=== PATIENT | female | born 2000 | race Caucasian/White ===

== ENCOUNTER 2024-04-04 12:27 | Emergency (ER) | payer BC, SELFPAY ==
[2024-04-04 12:35] VITALS: BP 123/85; PULSE 85; TEMP 37.2; O2SAT 97; BMI 26.6
--- NOTE | 2024-04-04 12:47 | ED_ITS ---
HPI HPI - General Adult General Chief complaint: Vaginal Bleeding Stated complaint: VAGINAL BLEEDING, CRAMPING APPROX 6 WKS PREG Time Seen by Provider: 04/04/24 12:44 Source: patient Mode of arrival: walk-in Limitations: no limitations History of Present Illness HPI narrative: Patient is a 23-year-old female who is presenting to the ER concerned about and vaginal bleeding. Patient is G1, P0, she has had 1 miscarriage mother is at bedside. Patient's [employer] is Dr. Campa. Patient is not lightheaded or dizzy. No abdominal pain. No abdominal cramping. No pelvic pain. No traumatic intercourse recently, no falls, no trauma to the pelvic area. Patient takes no blood thinners. Patient's had no heavy lifting twisting turning at work. No bowel or bladder changes. No other acute complaints. Mother at bedside. Patient did a [id number] test 2 days ago and yesterday that were positive. Patient started having minimal vaginal bleeding and small clots passing this morning. All systems are negative except as noted/marked. All systems reviewed and otherwise negative. Nurses note and vital signs reviewed and patient is not hypoxic. General: The patient appears well and in no apparent distress. Patient is resting comfortably on cart. Patient is not toxic, lethargic, or listless Skin: Warm, dry, no pallor noted. There is no rash noted. No petechiae, purpura. Head: Normocephalic, atraumatic Eye: Normal conjunctiva, no drainage, EOMI. PERRL Ears, Nose, Mouth, and Throat: oral mucosa is moist. Nares patent. Mouth without vesicles. Cardiovascular: Regular Rate and Rhythm, no murmur, gallop, rub Respiratory: Patient is in no distress, no accessory muscle use, lungs are clear to auscultation, no wheezing, rales or rhonchi Back: non-tender, no CVA tenderness bilaterally to percussion. No CT LS midline pain GI: no tenderness to palpation, no masses appreciated. No rebound, guarding, or rigidity noted. No distention Musculoskeletal: Patient has full range of motion of all of the extremities, no motor, sensory, or focal neurological deficits Neurological: A&O x4, normal speech Psychiatric: Cooperative Related Data Home Medications ?Medication ?Instructions ?Recorded ?Confirmed metformin 500 mg tablet,extended 500 mg PO BID 04/04/24 04/04/24 release 24 hr pantoprazole 40 mg tablet,delayed 40 mg PO DAILY 04/04/24 04/04/24 release Allergies Allergy/AdvReac Type Severity Reaction Status Date / Time No Known Drug Allergies Allergy Verified 04/04/24 12:39 Opioid HPI Opioid Management Most Recent Opioid Data: No Data to Display [facility] Medical History (Updated 04/04/24 @ 13:44 by Joaquín Mathews MD) History of PCOS ?Z87.42 - Personal history of other diseases of the female genital tract (ICD-10) Social History Little interest or pleasure in doing things: not at all Feeling down, depressed, or hopeless: not at all Exam Constitutional Vital Signs, click to edit/add: Last Vital Signs Temp 99 F 04/04/24 12:35 Pulse 80 04/04/24 13:55 Resp 16 04/04/24 13:55 BP 110/80 04/04/24 13:55 Pulse Ox 99 04/04/24 13:55 O2 Del Method Room Air 04/04/24 13:55 Course Vital Signs Vital signs: Vital Signs Temperature 99 F 04/04/24 12:35 Pulse Rate 85 04/04/24 12:35 Respiratory Rate 20 04/04/24 12:35 Blood Pressure 123/85 04/04/24 12:35 Pulse Oximetry 97 04/04/24 12:35 Oxygen Delivery Method Room Air 04/04/24 12:35 Temperature 99 F 04/04/24 12:35 Pulse Rate 80 04/04/24 13:55 Respiratory Rate 16 04/04/24 13:55 Blood Pressure 110/80 04/04/24 13:55 Pulse Oximetry 99 04/04/24 13:55 Oxygen Delivery Method Room Air 04/04/24 13:55 Medical Decision Making MDM Narrative Medical decision making narrative: Patient's hCG is 5. Case was discussed with Dr. Campa. He agreed with not pe rforming pelvic exam and ultrasound, patient is not . A prescription for repeat hCG quantitative lab work was written for next week to use if needed and patient will follow-up with Dr. Campa as needed. Patient most likely is starting her period today. Patient last menstrual period was February 28. Patient is trying to get . No questions at discharge. Patient is not , she was very relieved that she was not having a miscarriage at this time. Patient is to increase fluids and follow-up with Dr. Campa for any other acute concerns. patient did not call Dr. Campa's office this morning. Lab Data Labs: Lab Results 04/04/24 04/04/24 Range/Units 12:45 13:34 WBC 9.5 (4.0-11.0) 10^3/uL RBC 4.28 (4.20-5.40) 10^6/uL Hgb 13.1 (12.0-16.0) g/dL Hct 38.9 (36.0-48.0) % MCV 90.9 (81.0-99.0) fL MCH 30.6 (26.7-34.0) pg MCHC 33.7 (29.9-35.2) g/dL RDW 11.9 (11.0-15.0) % Plt Count 322 (150-450) 10^3/uL MPV 8.9 L (9.5-13.5) fL Neut % (Auto) 66.2 (43.0-75.0) % Lymph % (Auto) 26.4 (20.5-60.0) % [place] % (Auto) 5.8 (1.7-12.0) % Eos % (Auto) 1.1 (0.9-7.0) % Baso % (Auto) 0.2 (0.2-2.0) % Neut # (Auto) 6.3 (1.4-6.5) 10^3/uL Lymph # (Auto) 2.5 (1.2-3.8) 10^3/uL [place] # (Auto) 0.6 (0.3-0.8) 10^3/uL Eos # (Auto) 0.1 (0.0-0.7) 10^3/uL Baso # (Auto) 0.0 (0.0-0.1) 10^3/uL Abs Immat Gran (auto) 0.03 (0.00-0.03) 10^3/uL Imm/Tot Granulo (auto) 0.3 (0.0-0.5) % HCG, Quant 5 mIU/mL Urine Color Lt. yellow (YELLOW) Urine Clarity Clear (CLEAR) Urine pH 6.0 (5.0-9.0) Ur Specific [place] 1.015 (1.005-1.025) Urine Protein Negative (NEG/TRACE) mg/dL Urine Glucose (UA) Negative (NEGATIVE) mg/dL Urine Ketones Negative (NEGATIVE) mg/dL Urine Occult Blood Small A (NEGATIVE) Urine Nitrite Negative (NEGATIVE) Urine Bilirubin Negative (NEGATIVE) Urine Urobilinogen 0.2 (0.2-1.0) EU/dL Ur Leukocyte Esterase Negative (NEGATIVE) Urine RBC 2-5 A (0-2) #/HPF Urine WBC 0-2 A (NONE SEEN) #/HPF Ur Squamous Epith Cells Moderate A (NONE/RARE) #/LPF Urine Crystals None seen (None Seen) #/HPF Urine Bacteria Trace A (NONE SEEN) #/HPF Urine Casts None seen (NONE SEEN) #/LPF Urine Mucus None seen (NONE SEEN) Ur Culture Indicated? No Blood Type B Positive Discharge Plan Discharge Chief Complaint: Vaginal Bleeding Clinical Impression: Dysfunctional uterine bleeding Patient Disposition: Home, Self-Care Time of Disposition Decision: 13:43 Condition: Fair Prescriptions / Home Meds: No Action pantoprazole 40 mg tablet,delayed release (DR/EC) 40 mg PO DAILY metformin 500 mg tablet extended release 24 hr 500 mg PO BID Print Language: Belarusian Instructions: Abnormal (Dysfunctional) Uterine Bleeding (ED) Additional Instructions: A prescription has been given to you to redraw your lab work in 7 days if needed to recheck your hCG quantitative measures. Follow-up with Dr. Campa in the office as needed. Referrals: Shaikh Mercado MD [Primary Care Provider] - 1 week Discharge Date/Time: 04/04/24 14:00
[2024-04-04 12:55] LABS: Basophils Percent Auto 0.2 % (0.2-2.0); Eosinophils Absolute Auto 0.1 10^3/uL (0.0-0.7); Eosinophils Percent Auto 1.1 % (0.9-7.0); Hematocrit 38.9 % (36.0-48.0); Hemoglobin 13.1 g/dL (12.0-16.0); Immature Granulocytes Abs Auto 0.03 10^3/uL (0.00-0.03); Immature Granulocytes Pct Auto 0.3 % (0.0-0.5); Lymphocytes Absolute Auto 2.5 10^3/uL (1.2-3.8); Lymphocytes Percent Auto 26.4 % (20.5-60.0); Mean Corpuscular HGB Conc 33.7 g/dL (29.9-35.2); Mean Corpuscular Hemoglobin 30.6 pg (26.7-34.0); Mean Corpuscular Volume 90.9 fL (81.0-99.0); Mean Platelet Volume 8.9 fL (9.5-13.5); Monocytes Absolute Auto 0.6 10^3/uL (0.3-0.8); Monocytes Percent Auto 5.8 % (1.7-12.0); Neutrophils Absolute Auto 6.3 10^3/uL (1.4-6.5); Neutrophils Percent Auto 66.2 % (43.0-75.0); Platelet Count 322 10^3/uL (150-450); Red Blood Count 4.28 10^6/uL (4.20-5.40); Red Cell Distribution Width 11.9 % (11.0-15.0); White Blood Count 9.5 10^3/uL (4.0-11.0)
[2024-04-04 13:17] LABS: HCG Quantitative 5 mIU/mL
[2024-04-04 13:43] LABS: Bilirubin Urine NEGATIVE (NEGATIVE); Blood Urine SMALL (NEGATIVE); Clarity Urine CLEAR (CLEAR); Color Urine LT. YELLOW (YELLOW); Glucose Urine UA NEGATIVE (NEGATIVE); Ketones Urine NEGATIVE (NEGATIVE); Leukocyte Esterase Urine NEGATIVE (NEGATIVE); Nitrite Urine NEGATIVE (NEGATIVE); Protein Urine NEGATIVE (NEG/TRACE); Specific Gravity Urine 1.015 (1.005-1.025); Urobilinogen Urine 0.2 EU/dL (0.2-1.0)
[2024-04-04 13:49] LABS: WBC Urine 0-2 #/HPF (NONE SEEN)
[2024-04-04 13:50] LABS: Bacteria Urine TRACE #/HPF (NONE SEEN); Cast Seen? NONE SEEN #/LPF (NONE SEEN); Crystals Seen? None Seen #/HPF (None Seen); Mucus Urine NONE SEEN (NONE SEEN); Squamous Epithelial Cell Urine MODERATE #/LPF (NONE/RARE); Urine Culture Indicated NO
[2024-04-04 13:55] VITALS: BP 110/80; PULSE 80; O2SAT 99
== END 2024-04-04 14:00 | disposition home or self-care (01) ==
PROVIDERS: Emergency Provider Emergency Medicine; PCP Internal Medicine
DX: N93.8 Other specified abnormal uterine and vaginal bleeding (principal)
CPT/HCPCS: 36415; 81001; 84702; 85025; 86900; 86901; 99283